=== PATIENT | male | born 1945 | race African-American/Black ===

== ENCOUNTER 2018-11-27 09:47 | Emergency (ER) | payer MEDICARE, MEDICAID ==
[~2018-11-27] VITALS: Ht 162.6 cm; Wt 72.6 kg
[~2018-11-27 09:47] MED LIST: KEFLEX500 MG ORAL; NKM
[2018-11-27 10:05] VITALS: BP 167/92
--- NOTE | 2018-11-27 10:05 | NUR ---
ED Nurse Note: Patient walked in c/o right elbow swelling and pain x 2 days; denies injury. Pt rates pain at 6/10. Pt is A&O x4, V/S noted with no s/s of acute distress noted at this time. Will continue to monitor the pt.
[2018-11-27] MEDS ORDERED: IBUPROFEN600 MG ORAL (10:22)
--- NOTE | 2018-11-27 10:27 | Emergency Room Report ---
History of Present Illness General Chief Complaint: Pain Source: Patient Present Illness HPI Patient presents with complaints of swelling to his right elbow initially noted In triage regarding pain as well however reports minimal discomfort denies any trauma Patient reports the swelling happened overnight he had just recently seen his primary physician however did not have this problem at the time Denies any neuropathy denies any shoulder pain denies any fevers or chills Allergies: Coded Allergies: No Known Allergies (Unverified , 03/22/14) Patient History Past Medical History: see triage record Pertinent Family History: none Reviewed Nursing Documentation: PMH: Agreed; PSxH: Agreed Nursing Documentation-PMH Hx Hypertension: Yes Review of Systems All Other Systems: negative except mentioned in HPI Physical Exam Vital Signs Date Time Temp Pulse Resp B/P (MAP) Pulse Ox O2 Delivery O2 Flow Rate FiO2 11/27/18 10:00 98.2 70 18 167/92 95 11/27/18 10:05 Room Air Sp02 EP Interpretation: reviewed, normal General Appearance: well appearing, no apparent distress Head: normocephalic, atraumatic Eyes: bilateral eye PERRL, bilateral eye EOMI ENT: hearing grossly normal Neck: full range of motion, supple Respiratory: lungs clear Cardiovascular #1: regular rate, rhythm Gastrointestinal: non tender, soft Musculoskeletal: other - Palpable swelling to the right elbow otherwise range of motion intact equal culinary arts teacher bilaterally Neurologic: alert, oriented x3 Skin: other - As above Lymphatic: no adenopathy Medical Decision Making Diagnostic Impression: Primary Impression: bursitis, elbow ER Course Patient's exam is consistent with bursitis patient is afebrile area does not appear warm or erythematous there was no reports of any trauma other differential such as gout, septic joint are considered Patient has free range and mobility of the elbow my suspicion for infection is low And patient will have close outpatient follow-up Last Vital Signs Date Time Temp Pulse Resp B/P (MAP) Pulse Ox O2 Delivery O2 Flow Rate FiO2 11/27/18 10:05 98.2 80 18 167/92 95 Room Air Status: unchanged Disposition: HOME, SELF-CARE Condition: Stable Scripts Ibuprofen* (MOTRIN*) 600 Mg Tablet 600 MG ORAL Q8H PRN for For Pain, #20 TAB 0 Refills Prov: Charbel Chahal DO 11/27/18 Referrals: Saman Pace MD Patient Instructions: Elbow Bursitis, [id number] Additional Instructions: Patient is provided with the discharge instructions notified to follow up with primary doctor in the next 2-3 days in order to obtain specialty referral otherwise return to the er with any worsening symptoms. Please note that this report is being documented using DRAGON technology. This can lead to erroneous entry secondary to incorrect interpretation by the dictating instrument. Charbel Chahal DO Nov 27, 2018 10:27
--- NOTE | 2018-11-27 10:29 | NUR ---
ED Nurse Note: pt was cleared for discharge by catina. prescription and discharge instruction explained. pt is aox 4, pt able to verbalize understanding. id band removed. pt able to walk with steady gait. pt left with all belongings.
[2018-11-27 10:30] VITALS: BP 167/92
== END 2018-11-27 10:35 | disposition home or self-care (01) ==
LOC: EMR 10:35
DX: M70.31 Other bursitis of elbow, right elbow (principal); I10 Essential (primary) hypertension
CPT/HCPCS: 99282

== ENCOUNTER 2019-05-19 18:47 | Inpatient (IN) | payer OTHER, MEDICAID ==
[~2019-05-19] VITALS: Ht 162.6 cm; Wt 72.6 kg
[~2019-05-19 18:47] MED LIST changes: +IBUPROFEN600 MG ORAL
--- NOTE | 2019-05-19 19:15 | NUR ---
ED Nurse Note: Patient walked in to ER c/o left leg pain 5/10. Deny any injury, fall. Stated that did not take BP medications during 4 days, BP upon arrival 204/105. AAO x4, skin is dry warm to touch. Patient connected to the monitor, will continue to monitor.
[2019-05-19 19:28] VITALS: BP 210/106
--- NOTE | 2019-05-19 20:04 | Emergency Room Report ---
History of Present Illness General Chief Complaint: Pain Source: Patient Present Illness HPI This patient complains of pain in his left hip. He states the pain is worse with movement. He states it radiates to his left thigh. He denies trauma or injury. He denies fever or chills. Denies tingling or numbness. He denies loss of bowel or bladder control. He has no other complaints. Allergies: Coded Allergies: No Known Allergies (Unverified , 03/22/14) Patient History Past Medical History: see triage record, HTN Social History: Denies: smoking, alcohol use, drug use Reviewed Nursing Documentation: PMH: Agreed; PSxH: Agreed Nursing Documentation-PMH Past Medical History: No History, Except For Hx Hypertension: Yes Review of Systems All Other Systems: negative except mentioned in HPI Physical Exam Vital Signs Date Time Temp Pulse Resp B/P (MAP) Pulse Ox O2 Delivery O2 Flow Rate FiO2 05/19/19 18:54 98.2 76 16 210/106 (140) 99 Room Air Sp02 EP Interpretation: reviewed, normal General Appearance: no apparent distress, alert, GCS 15, non-toxic Head: normocephalic, atraumatic Eyes: bilateral eye normal inspection, bilateral eye PERRL ENT: hearing grossly normal, normal pharynx, no angioedema, normal voice Neck: full range of motion, supple/symm/no masses Respiratory: chest non-tender, lungs clear, normal breath sounds, no respiratory distress, no retraction, no accessory muscle use, speaking full sentences Cardiovascular #1: regular rate, rhythm, no edema Gastrointestinal: normal bowel sounds, non tender, soft, non-distended, no guarding, no rebound Rectal: deferred Musculoskeletal: back normal, normal range of motion, other - Antalgic gait, + Pain with ROM of L. hip. Neurologic: alert, oriented x3, responsive, motor strength/tone normal, sensory intact, speech normal Psychiatric: judgement/insight normal, memory normal, mood/affect normal, no suicidal/homicidal ideation Medical Decision Making Diagnostic Impression: Primary Impression: Hip pain, left Additional Impressions: NSTEMI (non-ST elevated myocardial infarction) Malignant hypertension Noncompliance with medications ER Course This patient is found to have an elevated troponin consistent with non-STEMI. He also had malignant hypertension. He was given 2 doses of IV hydralazine, Lovenox, Plavix and aspirin here in the emergency department. The patient's left hip pain is likely musculoskeletal in etiology. Left hip x-ray and left femur x-ray were negative. This patient is admitted for further evaluation by cardiology and for his malignant hypertension This patient is critically ill. This patient required complex medical decision- making, aggressive intervention, extensive laboratory workup and monitoring. Critical care time: 40 minutes. Laboratory Tests Test 05/19/19 20:05 White Blood Count 7.0 K/UL (4.8-10.8) Red Blood Count 4.97 M/UL (4.70-6.10) Hemoglobin 14.8 G/DL (14.2-18.0) Hematocrit 44.4 % (42.0-52.0) Mean Corpuscular Volume 89 FL (80-99) Mean Corpuscular Hemoglobin 29.8 PG (27.0-31.0) Mean Corpuscular Hemoglobin Concent 33.3 G/DL (32.0-36.0) Red Cell Distribution Width 12.3 % (11.6-14.8) Platelet Count 271 K/UL (150-450) Mean Platelet Volume 6.4 FL (6.5-10.1) L Neutrophils (%) (Auto) 64.2 % (45.0-75.0) Lymphocytes (%) (Auto) 20.8 % (20.0-45.0) Monocytes (%) (Auto) 8.5 % (1.0-10.0) Eosinophils (%) (Auto) 4.4 % (0.0-3.0) H Basophils (%) (Auto) 2.1 % (0.0-2.0) H Sodium Level 139 MMOL/L (136-145) Potassium Level 4.1 MMOL/L (3.5-5.1) Chloride Level 105 MMOL/L (98-107) Carbon Dioxide Level 30 MMOL/L (21-32) Anion Gap 4 mmol/L (5-15) L Blood Urea Nitrogen 20 mg/dL (7-18) H Creatinine 1.5 MG/DL (0.55-1.30) H Estimate Glomerular Filtration Rate mL/min (>60) Glucose Level 118 MG/DL (74-106) H Calcium Level 8.8 MG/DL (8.5-10.1) Total Bilirubin 0.5 MG/DL (0.2-1.0) Aspartate Amino Transferase (AST) 17 U/L (15-37) Alanine Aminotransferase (ALT) 14 U/L (12-78) Alkaline Phosphatase 58 U/L (46-116) Total Creatine Kinase 131 U/L (26-308) Creatine Kinase MB 1.5 NG/ML (0.0-3.6) Creatine Kinase MB Relative Index 1.1 Troponin I 0.060 ng/mL (0.000-0.056) Total Protein 6.3 G/DL (6.4-8.2) L Albumin 3.1 G/DL (3.4-5.0) L Globulin 3.2 g/dL Albumin/Globulin Ratio 1.0 (1.0-2.7) EKG Diagnostic Results Rate: normal - SR w/ 1st degree AV block Rhythm: other - SR w/ 1st degree AV block ST Segments: no acute changes Rhythm Strip Diag. Results EP Interpretation: yes Rate: 60's Rhythm: no PVC's, no ectopy, other - SR Other X-Ray Diagnostic Results Other X-Ray Diagnostic Results : X-Ray ordered: L. Hip, L. femur xrays # of Views/Limited Vs Complete: Complete Indication: Pain EP Interpretation: Yes Interpretation: no fractures Impression: No acute disease Electronically Signed by: Alyas Maria DO. Last Vital Signs Date Time Temp Pulse Resp B/P (MAP) Pulse Ox O2 Delivery O2 Flow Rate FiO2 05/19/19 19:28 98.2 16 210/106 99 Room Air 05/19/19 18:54 76 Status: improved Disposition: ADMITTED INPATIENT Condition: Critical Alysa Maria DO May 19, 2019 20:04
[2019-05-19] MEDS ORDERED: Tylenol #3 tab (300mg/30mg) ORAL ONE (20:15)
[2019-05-19 20:28] VITALS: BP 184/98
--- NOTE | 2019-05-19 20:28 | NUR ---
ED Nurse Note: After 0.5 mL of Apresoline pt's BP is 170/89.
[2019-05-19 20:33] LABS: BASOPHILS % (AUTO) 2.1 % (0.0-2.0); EOSINOPHILS % (AUTO) 4.4 % (0.0-3.0); HEMATOCRIT 44.4 % (42.0-52.0); HEMOGLOBIN 14.8 G/DL (14.2-18.0); LYMPHOCYTES % (AUTO) 20.8 % (20.0-45.0); MEAN CORPUSCULAR VOLUME 89 FL (80-99); MONOCYTES % (AUTO) 8.5 % (1.0-10.0); NEUTROPHILS % (AUTO) 64.2 % (45.0-75.0); PLATELET COUNT 271 K/UL (150-450); RED BLOOD COUNT 4.97 M/UL (4.70-6.10); RED CELL DISTRIBUTION WIDTH 12.3 % (11.6-14.8)
[2019-05-19] MEDS ORDERED: Enoxaparin 80mg Inj SUBQ ONE (21:00)
[2019-05-19 21:11] LABS: ANION GAP 4 mmol/L (5-15); BLOOD UREA NITROGEN 20 mg/dL (7-18); CALCIUM 8.8 MG/DL (8.5-10.1); CARBON DIOXIDE 30 MMOL/L (21-32); CHLORIDE 105 MMOL/L (98-107); CREATININE 1.5 MG/DL (0.55-1.30); POTASSIUM 4.1 MMOL/L (3.5-5.1); SODIUM 139 MMOL/L (136-145)
[2019-05-19 21:25] LABS: ALANINE AMINOTRANSFERASE 14 U/L (12-78); ALBUMIN 3.1 G/DL (3.4-5.0); ALKALINE PHOSPHATASE 58 U/L (46-116); ASPARTATE AMINO TRANSFERASE 17 U/L (15-37); BILIRUBIN,TOTAL 0.5 MG/DL (0.2-1.0); CKMB 1.5 NG/ML (0.0-3.6); CREATINE KINASE 131 U/L (26-308)
[2019-05-19 21:28] VITALS: BP 177/95
[2019-05-19 22:28] VITALS: BP 166/84
[2019-05-20] VITALS (8 sets, daily range): BP systolic 125–190; BP diastolic 0–96
--- NOTE | 2019-05-20 00:53 | NUR ---
ED Nurse Note: Patient is in the bed, AAO xr4, VSS at this time, sandwich and juice provided.
--- NOTE | 2019-05-20 01:22 | NUR ---
ED Nurse Note: Patient was admited to Tele due to NSTEMI. AAO x4, VSS at this time, pt's BP is 158/85, skin is dry warm to touch. Patient was transfered via gurney by ACLS protocol, with all belongings.
--- NOTE | 2019-05-20 01:38 | NUR ---
NURSE NOTES: Received pt from YUNIOR Dukes. Pt awake, alert, and c/o leg pain. Bed in lowest position. Call light within reach. Called and received the following orders from Dr. Nguyen: - SCD - tropX3 - cont home meds ( pt stated that he does not remember home meds and someone will bring it in the morning) - CBC, CMP @ 0400 VSS. Will continue to monitor.
[2019-05-20] MEDS: traMADol 50mg tab ORAL PRN ×3 (05:05→23:19)
[2019-05-20 06:46] LABS: BASOPHILS % (AUTO) 1.8 % (0.0-2.0); EOSINOPHILS % (AUTO) 4.8 % (0.0-3.0); HEMATOCRIT 46.2 % (42.0-52.0); HEMOGLOBIN 15.2 G/DL (14.2-18.0); LYMPHOCYTES % (AUTO) 23.9 % (20.0-45.0); MEAN CORPUSCULAR VOLUME 90 FL (80-99); MONOCYTES % (AUTO) 11.1 % (1.0-10.0); NEUTROPHILS % (AUTO) 58.4 % (45.0-75.0); PLATELET COUNT 265 K/UL (150-450); RED BLOOD COUNT 5.11 M/UL (4.70-6.10); WHITE BLOOD COUNT 7.6 K/UL (4.8-10.8)
--- NOTE | 2019-05-20 07:15 | NUR ---
NURSE NOTES: I received the patient awake and eating breakfast in bed. Patient alert and oriented x4. Patient denies pain at this time. Bed in the lowest position and call light within reach. Patient does not display any signs of distress or SOB. I will continue to monitor the patient and implement care.
[2019-05-20 07:34] LABS: ALANINE AMINOTRANSFERASE 12 U/L (12-78); ALBUMIN 2.8 G/DL (3.4-5.0); ALBUMIN/GLOBULIN RATIO 0.9 (1.0-2.7); ALKALINE PHOSPHATASE 57 U/L (46-116); ANION GAP 6 mmol/L (5-15); ASPARTATE AMINO TRANSFERASE 20 U/L (15-37); BILIRUBIN,TOTAL 0.5 MG/DL (0.2-1.0); BLOOD UREA NITROGEN 21 mg/dL (7-18); CALCIUM 8.8 MG/DL (8.5-10.1); CARBON DIOXIDE 29 MMOL/L (21-32); CHLORIDE 107 MMOL/L (98-107); CREATININE 1.3 MG/DL (0.55-1.30); POTASSIUM 3.9 MMOL/L (3.5-5.1); SODIUM 141 MMOL/L (136-145)
--- NOTE | 2019-05-20 08:02 | NUR ---
HAND-OFF: Report given to boaz Reese. pT STABLE
[2019-05-20] MEDS: HydrALAZINE 50mg tab ORAL SCH ×3 (08:32→17:15)
[2019-05-20 10:36] LABS: CHOLESTEROL 201 MG/DL (< 200); HDL CHOLESTEROL 41 MG/DL (40-60); TRIGLYCERIDES 112 MG/DL (30-150)
--- NOTE | 2019-05-20 12:14 | Diagnostic Imaging Report ---
Indication: Left thigh pain Comparison: None Findings: 2 views of the left femur were obtained. No acute fractures, malalignment, erosions or periostitis are identified. Soft tissues are unremarkable. Impression: Negative examination of the femur
--- NOTE | 2019-05-20 12:15 | Diagnostic Imaging Report ---
Indications: Left hip pain Findings: Two views of the left hip were obtained. No acute fracture is demonstrated. Alignment of the hip is within normal limits. There is narrowing of both hip joints. Degenerative changes of the lower lumbar spine noted. Arterial calcifications are present. Soft tissues are unremarkable. Impression: Negative for acute injury.
--- NOTE | 2019-05-20 13:40 | NUR ---
CASE MANAGEMENT:REVIEW 73 YR OLD MALE FROM HOME TO ER CC: LT LEG PAIN SI: NSTEMI. MALIGNANT HTN. LT HIP PAIN 98.2 76 16 210/106 99% ON RA BUN+20 CR+1.5 TROPONIN(+) 0.060 IS: IV HYDRALAZINE X2 TYLENOL #3 PO ASA PO LOVENOX SQ FEMUR XRAY HIP XRAY : TO TELEMETRY *INTERQUAL CRITERIA MET
--- NOTE | 2019-05-20 15:52 | Cardiology Report ---
APPROVED REPORT EKG Measurement Heart [id number] Sinus tachycardia Possible Left atrial enlargement Left posterior fascicular block Inferior infarct, age undetermined Possible Anterior infarct, age undetermined Abnormal ECG
--- NOTE | 2019-05-20 16:29 | NUR ---
INSURANCE UPDATED CLINICALS and REVIEW HAVE BEEN FAXED TO: [facility] PLEASE FAX THE REVIEW AND CLINICAL TO IPA: KAYLI MCGRAW P: [phone] F: [phone] (FAX CLINICALS)
--- NOTE | 2019-05-20 18:11 | NUR ---
NURSE NOTES: Patient's BP is elevated. Hydralazine was administered, but BP continues to be elevated. Dr. Cronin was notified about patient's elevated BP. Patient resting in bed and does not display any signs of distress.
--- NOTE | 2019-05-20 19:20 | NUR ---
HAND-OFF: Report given to Gail Phoenix RN.
--- NOTE | 2019-05-20 19:21 | NUR ---
NURSE NOTES: Got report from Taryn MOJICA. Pt in stable condition. Denies any pain. No s/s of distress or discomfort noted. Pt resting in bed comfortably. Bed in low and locked position, call light within reach, bedside table within reach. Continue to monitor.
--- NOTE | 2019-05-20 19:59 | Cardiology Progress Note ---
Assessment/Plan Assessment/Plan hip pain no trauma and neg xray nstemi? htn hyperlipidemia start ecotrin sereil ezyme and ekg bb statin acei echo [id number] Objective Last 24 Hour Vital Signs Date Time Temp Pulse Resp B/P (MAP) Pulse Ox O2 Delivery O2 Flow Rate FiO2 05/20/19 17:15 169/96 05/20/19 16:00 97.8 94 20 169/96 (120) 98 05/20/19 16:00 104 05/20/19 15:23 97.8 05/20/19 13:15 138/80 05/20/19 12:00 79 05/20/19 12:00 98.1 91 20 138/80 (99) 97 05/20/19 09:00 Room Air 05/20/19 08:32 171/95 05/20/19 08:32 171/95 05/20/19 08:00 77 05/20/19 08:00 97.8 77 171/95 (120) 98 05/20/19 04:00 83 05/20/19 04:00 98.2 84 134/78 (96) 96 05/20/19 01:59 Room Air 05/20/19 01:43 76 125/83 (97) 97 05/20/19 01:32 93 05/20/19 01:22 98.2 87 16 158/85 99 Room Air 05/20/19 00:28 98.2 87 16 158/85 99 Room Air 05/19/19 22:28 98.2 100 16 166/84 99 Room Air 05/19/19 21:28 98.2 103 16 177/95 98 Room Air 05/19/19 21:14 191/98 05/19/19 20:50 98.2 05/19/19 20:28 98.2 110 16 184/98 99 Room Air 05/19/19 20:20 189/105 Intake and Output 05/19/19 05/20/19 19:00 07:00 # Voids 2 Laboratory Tests Test 05/19/19 20:05 05/20/19 05:17 White Blood Count 7.0 K/UL (4.8-10.8) 7.6 K/UL (4.8-10.8) Red Blood Count 4.97 M/UL (4.70-6.10) 5.11 M/UL (4.70-6.10) Hemoglobin 14.8 G/DL (14.2-18.0) 15.2 G/DL (14.2-18.0) Hematocrit 44.4 % (42.0-52.0) 46.2 % (42.0-52.0) Mean Corpuscular Volume 89 FL (80-99) 90 FL (80-99) Mean Corpuscular Hemoglobin 29.8 PG (27.0-31.0) 29.8 PG (27.0-31.0) Mean Corpuscular Hemoglobin Concent 33.3 G/DL (32.0-36.0) 33.0 G/DL (32.0-36.0) Red Cell Distribution Width 12.3 % (11.6-14.8) 13.0 % (11.6-14.8) Platelet Count 271 K/UL (150-450) 265 K/UL (150-450) Mean Platelet Volume 6.4 FL (6.5-10.1) L 6.2 FL (6.5-10.1) L Neutrophils (%) (Auto) 64.2 % (45.0-75.0) 58.4 % (45.0-75.0) Lymphocytes (%) (Auto) 20.8 % (20.0-45.0) 23.9 % (20.0-45.0) Monocytes (%) (Auto) 8.5 % (1.0-10.0) 11.1 % (1.0-10.0) H Eosinophils (%) (Auto) 4.4 % (0.0-3.0) H 4.8 % (0.0-3.0) H Basophils (%) (Auto) 2.1 % (0.0-2.0) H 1.8 % (0.0-2.0) Sodium Level 139 MMOL/L (136-145) 141 MMOL/L (136-145) Potassium Level 4.1 MMOL/L (3.5-5.1) 3.9 MMOL/L (3.5-5.1) Chloride Level 105 MMOL/L (98-107) 107 MMOL/L (98-107) Carbon Dioxide Level 30 MMOL/L (21-32) 29 MMOL/L (21-32) Anion Gap 4 mmol/L (5-15) L 6 mmol/L (5-15) Blood Urea Nitrogen 20 mg/dL (7-18) H 21 mg/dL (7-18) H Creatinine 1.5 MG/DL (0.55-1.30) H 1.3 MG/DL (0.55-1.30) Estimat Glomerular Filtration Rate mL/min (>60) mL/min (>60) Glucose Level 118 MG/DL (74-106) H 115 MG/DL (74-106) H Calcium Level 8.8 MG/DL (8.5-10.1) 8.8 MG/DL (8.5-10.1) Total Bilirubin 0.5 MG/DL (0.2-1.0) 0.5 MG/DL (0.2-1.0) Aspartate Amino Transf (AST/SGOT) 17 U/L (15-37) 20 U/L (15-37) Alanine Aminotransferase (ALT/SGPT) 14 U/L (12-78) 12 U/L (12-78) Alkaline Phosphatase 58 U/L (46-116) 57 U/L (46-116) Total Creatine Kinase 131 U/L (26-308) Creatine Kinase MB 1.5 NG/ML (0.0-3.6) Creatine Kinase MB Relative Index 1.1 Troponin I 0.060 ng/mL (0.000-0.056) 1.096 ng/mL (0.000-0.056) Total Protein 6.3 G/DL (6.4-8.2) L 6.0 G/DL (6.4-8.2) L Albumin 3.1 G/DL (3.4-5.0) L 2.8 G/DL (3.4-5.0) L Globulin 3.2 g/dL 3.2 g/dL Albumin/Globulin Ratio 1.0 (1.0-2.7) 0.9 (1.0-2.7) L Triglycerides Level 112 MG/DL (30-150) Cholesterol Level 201 MG/DL (< 200) H LDL Cholesterol 136 mg/dL (<100) H HDL Cholesterol 41 MG/DL (40-60) Cholesterol/HDL Ratio 4.9 (3.3-4.4) H Prostate Specific Antigen 1.57 ng/mL (0.13-4.0) Thyroid Stimulating Hormone (TSH) 3.226 uiU/mL (0.358-3.740) Les Cronin MD May 20, 2019 19:59
[2019-05-20] MEDS: Atorvastatin 80mg tab ORAL SCH ×2 (20:41→23:29)
[2019-05-20] MEDS: Metoprolol 25mg tab ORAL SCH ×2 (20:42→23:29)
--- NOTE | 2019-05-20 22:00 | Consultation ---
DATE OF CONSULTATION: 05/20/2019 CARDIOLOGY CONSULTATION CONSULTING PHYSICIAN: Les Cronin M.D. REFERRING PHYSICIAN: Bipin Nguyen M.D. REASON FOR REFERRAL: Hypertension. HISTORY OF PRESENT ILLNESS: This is an elderly gentleman, who has presented to the hospital here in emergency room at [facility]. He tells me he came in because of the pain in the left hip and was admitted to the hospital with significantly elevated blood pressure and this consultation subsequently requested by Dr. Nguyen for help in management of his blood pressure. He came to the emergency room because of his hip pain with movement. He states that his left leg has been the one that has been hurting. He denies any falls or injuries. Denies any chest pain or shortness of breath. No PND. No orthopnea. No palpitation. No dizziness or lightheadedness on standing. No heart pounding or palpitations. PAST MEDICAL HISTORY: Positive for history of high blood pressure. He denies any diabetes or high cholesterol. No heart attack, cancer, stroke, hepatitis, tuberculosis, asthma, or emphysema. No ulcers. No kidney problems, liver problems, thyroid problems, or anemia. He does have a history of arthritis. No HIV/AIDS, blood clots, prostatic enlargement. ALLERGIES: He is not allergic to any medications. SOCIAL HISTORY: He does not smoke or drink or use drugs. REVIEW OF SYSTEMS: GASTROINTESTINAL: He denies. : He does have discomfort on urination. PULMONARY: He denies. CONSTITUTIONAL: He denies. NEUROLOGICAL: He denies. PHYSICAL EXAMINATION: GENERAL: Shows to be elderly gentleman, in no respiratory distress. HEENT: Unremarkable. NECK: Supple. No jugular venous distention. LUNGS: Clear to auscultation and percussion. CARDIAC: Regular rhythm. Borderline tachycardic. No heaves, thrills, or gallops noted. ABDOMEN: Soft, nontender. Positive bowel sounds. EXTREMITIES: There is no clubbing, cyanosis, or edema. NEUROLOGICAL: He is awake, alert, responsive, and in no apparent distress. LABORATORY AND DIAGNOSTIC DATA: Laboratory values, his sodium 141, potassium 3.9, chloride 107, bicarb 29, BUN of 21, creatinine 1.3, and glucose of 115. His calcium is 8.8. Troponin was 0.060, subsequently is 1.096. Total protein is 6 and albumin of 2.9. Total cholesterol 201, LDL of 136, and HDL of 41. TSH of 3.26 and PSA of 1.57. He had x-rays of his hip that shows negative for injury. He also had x-rays of his femur that was negative for examination. His electrocardiogram shows normal sinus rhythm. There are Q-waves in the inferior leads. There is some biphasic T-waves in I and aVL, otherwise sinus rhythm, no ST or T-wave abnormalities. ASSESSMENT AND PLAN: 1. Abnormal cardiac enzymes. 2. Left hip pain. 3. Hypertension. 4. Hyperlipidemia. Dr. Nguyen, this patient was seen in cardiac consultation. The patient has significantly elevated blood pressure at times and therefore to be treated. His medication was not available aspirin for his possible myocardial injury. An echocardiogram should be ordered for evaluation of left ventricular systolic function. Repeat EKG and repeat cardiac enzymes will be done. Troponin will be ordered. Beta-blockers will be administered in addition to DEAN inhibitors for the time being. Of note, the patient absolutely denies any pain, pressure, tightness or heaviness, and discomfort in his chest. Les Cronin M.D. DR: KERVIN JOB#: [id number] CC:
[2019-05-21] VITALS (7 sets, daily range): BP systolic 139–175; BP diastolic 68–95
[2019-05-21 07:14] LABS: EOSINOPHILS % (AUTO) 1.9 % (0.0-3.0); HEMATOCRIT 49.2 % (42.0-52.0); HEMOGLOBIN 16.1 G/DL (14.2-18.0); LYMPHOCYTES % (AUTO) 15.9 % (20.0-45.0); MEAN CORPUSCULAR VOLUME 90 FL (80-99); MONOCYTES % (AUTO) 10.8 % (1.0-10.0); NEUTROPHILS % (AUTO) 70.4 % (45.0-75.0); PLATELET COUNT 291 K/UL (150-450); RED BLOOD COUNT 5.46 M/UL (4.70-6.10); RED CELL DISTRIBUTION WIDTH 13.3 % (11.6-14.8); WHITE BLOOD COUNT 10.1 K/UL (4.8-10.8)
--- NOTE | 2019-05-21 07:15 | NUR ---
NURSE NOTES: I received the patient awake and resting in bed. Patient alert and oriented x4. Bed in the lowest position and call light within reach. Patient does not display any signs of distress or SOB. I will continue to monitor the patient and implement care.
--- NOTE | 2019-05-21 07:15 | NUR ---
HAND-OFF: Report given to Taryn MOJICA. Endorsed plan of care.
[2019-05-21 07:57] LABS: ANION GAP 6 mmol/L (5-15); BLOOD UREA NITROGEN 18 mg/dL (7-18); CARBON DIOXIDE 30 MMOL/L (21-32); CHLORIDE 99 MMOL/L (98-107); CREATININE 1.2 MG/DL (0.55-1.30); POTASSIUM 4.4 MMOL/L (3.5-5.1); SODIUM 135 MMOL/L (136-145)
--- NOTE | 2019-05-21 08:15 | NUR ---
NURSE NOTES: Dr. Cronin notified about the patient's troponin level of 1.375. Patient resting in bed and does not display any signs of distress. I will continue to monitor the patient and implement care.
[2019-05-21] MEDS: Metoprolol 25mg tab ORAL SCH ×2 (08:27→20:59)
[2019-05-21] MEDS: Aspirin EC 81mg tab ORAL SCH (08:28)
--- NOTE | 2019-05-21 12:21 | NUR ---
CASE MANAGEMENT: REVIEW 05/21/2019 SI: NSTEMI. MALIGNANT HTN. LT HIP PAIN T 97.1 HR 57 RR 20 B/P 141/77 SATS 95% ON RA NA 135 TROPONIN 1.375 IS: LIPITOR PO QHS VASOTEC PO QD ASA PO QD NORVASC PO Q12H LOPRESSOR PO Q12H : TO TELEMETRY
--- NOTE | 2019-05-21 13:05 | NUR ---
HAND-OFF: Report given to YUNIOR Roy.
--- NOTE | 2019-05-21 13:10 | NUR ---
NURSE NOTES: Report received from YUNIOR Centeno. Patient AOx4. In RA. L AC 20g IV patent, SL. Bed on lowest position, side rails upx2, brakes engaged. Call light within easy reach.
[2019-05-21] MEDS: traMADol 50mg tab ORAL PRN ×2 (13:32→20:58)
--- NOTE | 2019-05-21 14:07 | Cardiology Progress Note ---
Assessment/Plan Assessment/Plan elevated troponin, but clinically stable, no symptoms, Echo pending Subjective Subjective the patient is sleeping in his bed. arousable, denies chest pain, denies dyspnea , denies any other chest discomfort Objective Last 24 Hour Vital Signs Date Time Temp Pulse Resp B/P (MAP) Pulse Ox O2 Delivery O2 Flow Rate FiO2 05/21/19 12:00 58 05/21/19 12:00 97.1 57 20 141/77 (98) 95 05/21/19 09:51 61 139/68 (91) 05/21/19 09:00 Room Air 05/21/19 08:28 175/85 05/21/19 08:27 63 175/85 05/21/19 08:27 63 175/85 05/21/19 08:00 59 05/21/19 07:57 97.4 63 18 175/85 (115) 95 05/21/19 04:20 59 05/21/19 04:20 98.0 66 20 150/88 (108) 95 05/21/19 00:07 96 05/21/19 00:01 98.4 98 19 160/95 (116) 95 05/21/19 00:00 98.6 05/20/19 23:29 100 190/95 05/20/19 23:29 100 190/95 05/20/19 22:53 Room Air 05/20/19 21:00 155/90 (111) 05/20/19 20:00 124 05/20/19 20:00 98.6 100 19 190/95 (126) 98 05/20/19 17:15 169/96 05/20/19 16:00 97.8 94 20 169/96 (120) 98 05/20/19 16:00 104 General Appearance: no apparent distress EENT: PERRL/EOMI Neck: no JVD Rhythm: NSR Cardiovascular: regular rhythm - distant Respiratory/Chest: rhonchi - bilaterally Abdomen: soft Extremities: other Neurologic: fish straightener II-XII grossly normal Intake and Output 05/20/19 05/21/19 19:00 07:00 Intake Total 840 ml Output Total 500 ml 500 ml Balance 340 ml -500 ml Intake Oral 840 ml Output Urine Total 500 ml 500 ml Laboratory Tests Test 05/21/19 06:31 White Blood Count 10.1 K/UL (4.8-10.8) Red Blood Count 5.46 M/UL (4.70-6.10) Hemoglobin 16.1 G/DL (14.2-18.0) Hematocrit 49.2 % (42.0-52.0) Mean Corpuscular Volume 90 FL (80-99) Mean Corpuscular Hemoglobin 29.5 PG (27.0-31.0) Mean Corpuscular Hemoglobin Concent 32.8 G/DL (32.0-36.0) Red Cell Distribution Width 13.3 % (11.6-14.8) Platelet Count 291 K/UL (150-450) Mean Platelet Volume 6.2 FL (6.5-10.1) L Neutrophils (%) (Auto) 70.4 % (45.0-75.0) Lymphocytes (%) (Auto) 15.9 % (20.0-45.0) L Monocytes (%) (Auto) 10.8 % (1.0-10.0) H Eosinophils (%) (Auto) 1.9 % (0.0-3.0) Basophils (%) (Auto) 1.0 % (0.0-2.0) Sodium Level 135 MMOL/L (136-145) L Potassium Level 4.4 MMOL/L (3.5-5.1) Chloride Level 99 MMOL/L (98-107) Carbon Dioxide Level 30 MMOL/L (21-32) Anion Gap 6 mmol/L (5-15) Blood Urea Nitrogen 18 mg/dL (7-18) Creatinine 1.2 MG/DL (0.55-1.30) Estimat Glomerular Filtration Rate mL/min (>60) Glucose Level 104 MG/DL (74-106) Calcium Level 9.0 MG/DL (8.5-10.1) Troponin I 1.375 ng/mL (0.000-0.056) Yana Patel MD May 21, 2019 14:07
--- NOTE | 2019-05-21 18:59 | Pulmonology Progress Note ---
Assessment/Plan Assessment/Plan left hip pain malignant hypertension NSTEMI will order CT of left hip and L spine will need PT fu with cards recommendations check labs fall precauations bp control Subjective Constitutional: Reports: no symptoms HEENT: Repors: no symptoms Respiratory: Reports: no symptoms Cardiovascular: Reports: no symptoms Gastrointestinal/Abdominal: Reports: no symptoms Musculoskeletal: Reports: pain, other Allergies: Coded Allergies: No Known Allergies (Unverified , 03/22/14) Subjective no cp complains of weak L leg unable to ambualte to the BR no fever or chills no nv tolearint po Objective Last 24 Hour Vital Signs Date Time Temp Pulse Resp B/P (MAP) Pulse Ox O2 Delivery O2 Flow Rate FiO2 05/21/19 16:00 57 05/21/19 16:00 98.0 61 18 143/87 (105) 97 05/21/19 12:00 58 05/21/19 12:00 97.1 57 20 141/77 (98) 95 05/21/19 09:51 61 139/68 (91) 05/21/19 09:00 Room Air 05/21/19 08:28 175/85 05/21/19 08:27 63 175/85 05/21/19 08:27 63 175/85 05/21/19 08:00 59 05/21/19 07:57 97.4 63 18 175/85 (115) 95 05/21/19 04:20 59 05/21/19 04:20 98.0 66 20 150/88 (108) 95 05/21/19 00:07 96 05/21/19 00:01 98.4 98 19 160/95 (116) 95 05/21/19 00:00 98.6 05/20/19 23:29 100 190/95 05/20/19 23:29 100 190/95 05/20/19 22:53 Room Air 05/20/19 21:00 155/90 (111) 05/20/19 20:00 124 05/20/19 20:00 98.6 100 19 190/95 (126) 98 Intake and Output 05/20/19 05/21/19 19:00 07:00 Intake Total 840 ml Output Total 500 ml 500 ml Balance 340 ml -500 ml Intake Oral 840 ml Output Urine Total 500 ml 500 ml General Appearance: WD/WN Respiratory/Chest: lungs clear, normal breath sounds Cardiovascular: normal rate, regular rhythm Abdomen: soft, non tender, no organomegaly Neurologic/Psychiatric: abnormal gait, alert, oriented x 3, responsive Laboratory Tests 05/21/19 06:31: White Blood Count 10.1, Red Blood Count 5.46, Hemoglobin 16.1, Hematocrit 49.2, Mean Corpuscular Volume 90, Mean Corpuscular Hemoglobin 29.5, Mean Corpuscular Hemoglobin Concent 32.8, Red Cell Distribution Width 13.3, Platelet Count 291, Mean Platelet Volume 6.2L, Neutrophils (%) (Auto) 70.4, Lymphocytes (%) (Auto) 15.9L, Monocytes (%) (Auto) 10.8H, Eosinophils (%) (Auto) 1.9, Basophils (%) ( Auto) 1.0, Sodium Level 135L, Potassium Level 4.4, Chloride Level 99, Carbon Dioxide Level 30, Anion Gap 6, Blood Urea Nitrogen 18, Creatinine 1.2, Estimat Glomerular Filtration Rate , Glucose Level 104, Calcium Level 9.0, Troponin I 1.375H Current Medications Medications (Trade) Dose Ordered Sig/Izabel Route PRN Reason Start Time Stop Time Status Last Admin Dose Admin Amlodipine Besylate (Norvasc) 2.5 mg Q12HR ORAL 05/20/19 20:00 06/19/19 19:59 05/21/19 08:27 Aspirin (Ecotrin) 81 mg DAILY ORAL 05/21/19 09:00 06/20/19 08:59 05/21/19 08:28 Atorvastatin Calcium (Lipitor) 80 mg BEDTIME ORAL 05/20/19 21:00 06/19/19 20:59 05/20/19 23:29 Enalapril Maleate (Vasotec) 40 mg DAILY ORAL 05/20/19 09:00 06/19/19 08:59 05/21/19 08:28 Metoprolol Tartrate (Lopressor) 25 mg Q12HR ORAL 05/20/19 21:00 06/19/19 20:59 05/21/19 08:27 Tramadol HCl (Ultram) 50 mg Q4H PRN ORAL for mod-severe pain 05/20/19 02:15 05/27/19 02:14 05/21/19 13:32 Gely Chanel DO May 21, 2019 18:59
--- NOTE | 2019-05-21 19:25 | NUR ---
HAND-OFF: Report given to YUNIOR Davison. Patient in stable condition.
--- NOTE | 2019-05-21 19:27 | NUR ---
NURSE NOTES: Received report from Sabino Zuniga RN. Patient in bed AAO X4 with no complaints of acute pain or distress at this time. Kept clean, dry, and comfortable in bed. IV line intact and patent SL and placed on continuous cardiac monitoring per protocol. Patient on bedrest and offered urinal PRN. Safety precaution in place; siderails X2 up, call light within reach, be din lowest position, brakes and alarm on at all times. Needs and wants anticipated and attended, will continue plan of care and monitor for any changes noted. Trop lvl 1.375. aware. Trop lvl order scheduled for 05/22 and 05/23
[2019-05-21] MEDS: Atorvastatin 80mg tab ORAL SCH (20:59)
[2019-05-22] VITALS (7 sets, daily range): BP systolic 149–206; BP diastolic 82–112
--- NOTE | 2019-05-22 01:00 | NUR ---
NURSE NOTES: Called and left message for Sabino Chanel MD. regarding patient's elevated BP. No PRN medication noted. awaiting call-back. Patient in bed with no S/S of distress. Will continue to monitor
[2019-05-22] MEDS: traMADol 50mg tab ORAL PRN ×2 (01:03→05:35)
--- NOTE | 2019-05-22 04:00 | NUR ---
NURSE NOTES: Patient in bed asleep with no S/S of distress. Will continue to monitor.
--- NOTE | 2019-05-22 07:20 | NUR ---
HAND-OFF: Report given to Nieves Kingsley RN. Patient in bed in stable condition with no S/S of distress. Endorsed plan of care.
[2019-05-22] MEDS: Metoprolol 25mg tab ORAL SCH ×2 (08:19→20:53)
[2019-05-22] MEDS: Aspirin EC 81mg tab ORAL SCH (08:20)
--- NOTE | 2019-05-22 10:28 | Pulmonology Progress Note ---
Assessment/Plan Assessment/Plan left hip pain malignant hypertension NSTEMI will order CT of left hip and L spine still pending. if negative will plan for dc will need PT fu with cards recommendations check labs fall precauations bp control Subjective Constitutional: Reports: no symptoms HEENT: Repors: no symptoms Respiratory: Reports: no symptoms Cardiovascular: Reports: no symptoms Allergies: Coded Allergies: No Known Allergies (Unverified , 03/22/14) Subjective no cp pain improved walked to bathroom without assistance or complaints no fever or chills no nv tolerating po CT still pending Objective Last 24 Hour Vital Signs Date Time Temp Pulse Resp B/P (MAP) Pulse Ox O2 Delivery O2 Flow Rate FiO2 05/22/19 09:00 Room Air 05/22/19 08:20 64 176/103 05/22/19 08:19 64 176/103 05/22/19 08:19 176/103 05/22/19 08:00 68 05/22/19 08:00 97.4 64 18 176/103 (127) 95 05/22/19 04:00 98.5 66 20 156/89 (111) 95 05/22/19 04:00 56 05/22/19 00:00 56 05/22/19 00:00 98.1 65 20 175/95 (121) 94 05/21/19 21:00 Room Air 05/21/19 20:59 65 165/92 05/21/19 20:59 65 165/92 05/21/19 20:00 98.1 65 18 165/92 (116) 98 05/21/19 20:00 73 05/21/19 16:00 57 05/21/19 16:00 98.0 61 18 143/87 (105) 97 05/21/19 12:00 58 05/21/19 12:00 97.1 57 20 141/77 (98) 95 Intake and Output 05/21/19 05/22/19 19:00 07:00 Intake Total 360 ml Output Total 650 ml 500 ml Balance -290 ml -500 ml Intake Oral 360 ml Output Urine Total 650 ml 500 ml General Appearance: WD/WN Respiratory/Chest: lungs clear, normal breath sounds Cardiovascular: normal rate, regular rhythm Abdomen: soft, non tender, non distended Skin: no rash, no lesions Neurologic/Psychiatric: abnormal gait, responsive Laboratory Tests 05/22/19 08:46: Troponin I [Pending] Current Medications Medications (Trade) Dose Ordered Sig/Izabel Route PRN Reason Start Time Stop Time Status Last Admin Dose Admin Amlodipine Besylate (Norvasc) 2.5 mg Q12HR ORAL 05/20/19 20:00 06/19/19 19:59 05/22/19 08:20 Aspirin (Ecotrin) 81 mg DAILY ORAL 05/21/19 09:00 06/20/19 08:59 05/22/19 08:20 Atorvastatin Calcium (Lipitor) 80 mg BEDTIME ORAL 05/20/19 21:00 06/19/19 20:59 05/21/19 20:59 Enalapril Maleate (Vasotec) 40 mg DAILY ORAL 05/20/19 09:00 06/19/19 08:59 05/22/19 08:19 Metoprolol Tartrate (Lopressor) 25 mg Q12HR ORAL 05/20/19 21:00 06/19/19 20:59 05/22/19 08:19 Tramadol HCl (Ultram) 50 mg Q4H PRN ORAL for mod-severe pain 05/20/19 02:15 05/27/19 02:14 05/22/19 05:35 Gely Chanel DO May 22, 2019 10:28
--- NOTE | 2019-05-22 13:52 | Cardiology Progress Note ---
Assessment/Plan Assessment/Plan elevated troponin, but clinically stable, no symptoms, Echo pending check Le arterial dpulex Subjective Subjective resting comfortably, denies any chest pain, complaints on left leg discomfort with motion Objective Last 24 Hour Vital Signs Date Time Temp Pulse Resp B/P (MAP) Pulse Ox O2 Delivery O2 Flow Rate FiO2 05/22/19 12:39 149/82 (104) 05/22/19 12:00 61 05/22/19 12:00 97.7 56 20 175/90 (118) 96 05/22/19 09:00 Room Air 05/22/19 08:20 64 176/103 05/22/19 08:19 64 176/103 05/22/19 08:19 176/103 05/22/19 08:00 68 05/22/19 08:00 97.4 64 18 176/103 (127) 95 05/22/19 04:00 98.5 66 20 156/89 (111) 95 05/22/19 04:00 56 05/22/19 00:00 56 05/22/19 00:00 98.1 65 20 175/95 (121) 94 05/21/19 21:00 Room Air 05/21/19 20:59 65 165/92 05/21/19 20:59 65 165/92 05/21/19 20:00 98.1 65 18 165/92 (116) 98 05/21/19 20:00 73 05/21/19 16:00 57 05/21/19 16:00 98.0 61 18 143/87 (105) 97 General Appearance: no apparent distress EENT: PERRL/EOMI Neck: non-tender, no JVD Rhythm: NSR Cardiovascular: normal rate Respiratory/Chest: crackles/rales - at bases Abdomen: non tender Pulses: decreased: PT (R), DP (L) Neurologic: sprayer insecticide II-XII grossly normal Intake and Output 05/21/19 05/22/19 18:59 06:59 Intake Total 360 ml Output Total 650 ml 500 ml Balance -290 ml -500 ml Intake Oral 360 ml Output Urine Total 650 ml 500 ml Laboratory Tests Test 05/22/19 08:46 Troponin I 1.145 ng/mL (0.000-0.056) Yana Patel MD May 22, 2019 13:52
--- NOTE | 2019-05-22 14:30 | Diagnostic Imaging Report ---
Indication: Chest pain Comparison: None A single view chest radiograph was obtained. Findings: No definite infiltrate or pulmonary vascular congestion identified. Lung volumes are low. There is mild basal atelectasis. The heart is enlarged. The aorta is mildly enlarged consistent with atherosclerotic vascular disease. Impression: No acute disease
--- NOTE | 2019-05-22 16:28 | NUR ---
HAND-OFF: Report given to YUNIOR Craig.
--- NOTE | 2019-05-22 16:30 | NUR ---
NURSE NOTES: Report received from YUNIOR Centeno. Pt. AOx4. In RA. Denies any pain or SOB. L AC 20g AC flushed, intact, SL. Bed on lowest position, side rails upx2, brakes engaged. Call light within easy reach. Reminder given to Pt. to use call light before getting out of bed.
--- NOTE | 2019-05-22 17:20 | NUR ---
NURSE NOTES: Pt. wasn't in bed. Found in the restroom. Reminder given to use call light. Fall precaution in place. Call light within easy reach.
--- NOTE | 2019-05-22 19:10 | NUR ---
NURSE NOTES: Found Pt. walking to the restroom. Assistance provided. Pt. refused to use call light. "I'll call you. It's just that I feel like I'm getting better, when I came here I can barely walk. Now I can....." Cane at bedside. Pt. both times walking to the restroom without cane. "Don't put alarm on my bed! I'll use call light if I need it!!........". Pt. safely in bed.
--- NOTE | 2019-05-22 19:23 | NUR ---
NURSE NOTES: Report received from YUNIOR Roy. Pt is in stable condition lying comfortably in bed. Bed in the lowest position, bed brakes engaged, side rails up x3 and call light within reach. Will continue to monitor.
--- NOTE | 2019-05-22 19:25 | NUR ---
HAND-OFF: Report given to YUNIOR Turk. Patient in stable condition.
[2019-05-22] MEDS: Atorvastatin 80mg tab ORAL SCH (20:51)
[2019-05-23] VITALS: BP 173/89
[2019-05-23 04:00] VITALS: BP 121/65
--- NOTE | 2019-05-23 07:29 | NUR ---
HAND-OFF: Report given to YUNIOR Roy.
[2019-05-23 08:00] VITALS: BP 139/82
--- NOTE | 2019-05-23 08:05 | NUR ---
CASE MANAGEMENT:REVIEW 05/22/19 SI: MALIGNANT HTN. NSTEMI LT HIP PAIN 99.5 77 20 206/112 95% ON RA TROPONIN(+) 1.145 IS: ASA PO QD LOPRESSOR PO Q12 LIPITOR PO QHS NORVASC PO Q12 VASOTEC PO QD ULTRAM PO Q4HRS PRN CLONIDINE PO Q4HRS PRN ; TELEMETRY STATUS 05/23/19 SI: MALIGNANT HTN. NSTEMI LT HIP PAIN 97.7 60 20 121/65 96% ON RA IS: ASA PO QD LOPRESSOR PO Q12 LIPITOR PO QHS NORVASC PO Q12 VASOTEC PO QD ULTRAM PO Q4HRS PRN CLONIDINE PO Q4HRS PRN ; TELEMETRY STATUS
[2019-05-23 08:38] LABS: BASOPHILS % (AUTO) 2.3 % (0.0-2.0); EOSINOPHILS % (AUTO) 6.4 % (0.0-3.0); HEMATOCRIT 47.9 % (42.0-52.0); HEMOGLOBIN 15.7 G/DL (14.2-18.0); LYMPHOCYTES % (AUTO) 28.1 % (20.0-45.0); MEAN CORPUSCULAR VOLUME 90 FL (80-99); MONOCYTES % (AUTO) 12.4 % (1.0-10.0); NEUTROPHILS % (AUTO) 50.9 % (45.0-75.0); PLATELET COUNT 302 K/UL (150-450); RED BLOOD COUNT 5.34 M/UL (4.70-6.10); RED CELL DISTRIBUTION WIDTH 12.8 % (11.6-14.8); WHITE BLOOD COUNT 6.9 K/UL (4.8-10.8)
[2019-05-23 08:46] LABS: ANION GAP 3 mmol/L (5-15); BLOOD UREA NITROGEN 25 mg/dL (7-18); CALCIUM 9.4 MG/DL (8.5-10.1); CARBON DIOXIDE 31 MMOL/L (21-32); CHLORIDE 100 MMOL/L (98-107); CREATININE 1.4 MG/DL (0.55-1.30); POTASSIUM 4.4 MMOL/L (3.5-5.1); SODIUM 134 MMOL/L (136-145)
--- NOTE | 2019-05-23 09:01 | NUR ---
NURSE NOTES: Reported Troponin level to Dr. Cronin as well as Dr. Nguyen. No new orders at this time.
[2019-05-23] MEDS: Aspirin EC 81mg tab ORAL SCH (09:13)
[2019-05-23] MEDS: Metoprolol 25mg tab ORAL SCH (09:14)
[2019-05-23 12:00] VITALS: BP 140/81
--- NOTE | 2019-05-23 12:34 | Diagnostic Imaging Report ---
Indications: Back pain Technique: Spiral acquisitions obtained through the lumbar spine. Multiplanar reconstructions were generated. No IV contrast utilized. Total dose length product 415.39 mGycm. CTDIvol(s) 13.09 mGy. Dose reduction achieved using automated exposure control Comparison: none Findings: 5 mm anterior offset of L4 on L5 is likely related to facet arthrosis. Bony alignment is normal otherwise. No acute fractures. No dislocations. The vertebral body heights are preserved. The disc spaces are preserved. At L3-4, circumferential bulge and facet and ligamentum flavum hypertrophy result in borderline narrowing of the spinal canal. The neural foramina are preserved. There is mild bilateral facet arthrosis. At L4-5, the the above described alignment abnormality, circumferential annular bulge, short pedicles, facet and ligamenta flava hypertrophy all result in moderate narrowing of the spinal canal. There may be slight compromise of the neural foramina due to the alignment abnormality. There is fairly extensive bilateral facet arthrosis. At L5-S1, there is mild circumferential annular bulge. This does not appear to significantly compromise the spinal canal. Facet arthrosis on the left results in mild compromise of the left neural foramen. The included extraspinal soft tissues are remarkable for apparent distention of the bladder. Impression: No acute bony trauma Degenerative changes, as detailed on a level by level basis above. Distended bladder incidentally noted The CT scanner at [facility] is accredited by the [employer] and the scans are performed using protocols designed to limit radiation exposure to as low as reasonably achievable to attain images of sufficient resolution adequate for diagnostic evaluation.
--- NOTE | 2019-05-23 12:53 | Diagnostic Imaging Report ---
Indication: Left hip pain Technique: Noncontrast spiral acquisitions obtained through the left hip and pelvis Multiplanar reconstructions were generated. Total dose length product 309.41 mGycm. CTDIvol(s) 12.29 mGy. Radiation dose was minimized using automated exposure control Comparison: none Findings: No evidence of acute fracture. There are mild degenerative changes of the hip joints bilaterally, with a few subchondral cysts noted. There is slight proliferative change of the bilateral acetabular lips. No evidence of significant soft tissue contusion. There is suggestion of slight inflammatory changes are seen in the upper pelvis, to the left of midline just above the dome of the bladder and adjacent to the sigmoid colon. There is sigmoid diverticulosis. Impression: No acute bony trauma Mild bilateral hip degenerative changes Sigmoid diverticulosis Questionable inflammatory changes in the left upper pelvis, adjacent to the dome of the bladder and to the sigmoid colon. If real, this could indicate cystitis or early acute diverticulitis. Correlate with clinical findings, consider dedicated contrast CT if clinically indicated for further evaluation. The CT scanner at [facility] is accredited by the [employer] and the scans are performed using protocols designed to limit radiation exposure to as low as reasonably achievable to attain images of sufficient resolution adequate for diagnostic evaluation.
--- NOTE | 2019-05-23 12:58 | General Progress Note ---
Assessment/Plan Assessment/Plan: left hip pain malignant hypertension NSTEMI no hip pain today troponin still high disc w cardiology and will need cath will arrange transfer Subjective Constitutional: Reports: no symptoms Allergies: Coded Allergies: No Known Allergies (Unverified , 03/22/14) Objective Last 24 Hour Vital Signs Date Time Temp Pulse Resp B/P (MAP) Pulse Ox O2 Delivery O2 Flow Rate FiO2 05/23/19 09:14 73 139/82 05/23/19 09:14 139/82 05/23/19 09:12 73 139/82 05/23/19 09:00 Room Air 05/23/19 08:00 67 05/23/19 08:00 98.2 73 18 139/82 (101) 96 05/23/19 04:00 97.7 60 20 121/65 (83) 96 05/23/19 04:00 57 05/23/19 00:57 173/89 05/23/19 00:00 67 05/23/19 00:00 98.1 64 20 173/89 (117) 98 05/22/19 21:00 Room Air 05/22/19 20:56 206/112 05/22/19 20:54 77 206/112 05/22/19 20:53 77 206/112 05/22/19 20:00 71 05/22/19 20:00 99.5 77 20 206/112 (143) 95 05/22/19 16:00 98.0 56 20 152/ 0 05/22/19 16:00 63 05/22/19 16:00 98.0 61 20 152/93 (112) 95 Intake and Output 05/22/19 05/23/19 19:00 07:00 Intake Total 360 ml Output Total 450 ml Balance -90 ml Intake Oral 360 ml Output Urine Total 450 ml # Voids 1 5 Laboratory Tests 05/23/19 07:57: White Blood Count 6.9, Red Blood Count 5.34, Hemoglobin 15.7, Hematocrit 47.9, Mean Corpuscular Volume 90, Mean Corpuscular Hemoglobin 29.5, Mean Corpuscular Hemoglobin Concent 32.9, Red Cell Distribution Width 12.8, Platelet Count 302, Mean Platelet Volume 6.1L, Neutrophils (%) (Auto) 50.9, Lymphocytes (%) (Auto) 28.1, Monocytes (%) (Auto) 12.4H, Eosinophils (%) (Auto) 6.4H, Basophils (%) ( Auto) 2.3H, Sodium Level 134L, Potassium Level 4.4, Chloride Level 100, Carbon Dioxide Level 31, Anion Gap 3L, Blood Urea Nitrogen 25H, Creatinine 1.4H, Estimat Glomerular Filtration Rate , Glucose Level 105, Calcium Level 9.4, Troponin I 1.202H Height (Feet): 5 Height (Inches): 4.00 Weight (Pounds): 160 General Appearance: no apparent distress Cardiovascular: normal rate Respiratory/Chest: lungs clear Bipin Nguyen MD May 23, 2019 12:58
--- NOTE | 2019-05-23 13:16 | NUR ---
NURSE NOTES: Received a call from Dr. Nguyen. Pt. to be transferred to another hospital, TODAY. Caicedo to follow up.
--- NOTE | 2019-05-23 13:19 | NUR ---
NURSE NOTES: Left a message to Marifer patient case coordinator. Waiting for a call back.
--- NOTE | 2019-05-23 13:35 | NUR ---
NURSE NOTES: Family wants to talk to MD. Message left to Dr. Magdaleno and Dr. Santizo. Waiting for a call back.
--- NOTE | 2019-05-23 13:59 | NUR ---
TRANSFER UPDATE TRANSFER ORDER NOTED CLINICALS WILL BE FAXED TO [facility] AND THEY WILL ARRANGE TRANSFER
--- NOTE | 2019-05-23 14:43 | NUR ---
Social Service Note Transfer arranged to [facility] room 443, nurse to call report to [phone], accepting Doctor, Dr. Robert Vaughn. Ambulance arranged with [facility] [phone], roller picker time [phone].
--- NOTE | 2019-05-23 16:00 | NUR ---
NURSE NOTES: Pt's family notified of DC planning.
[2019-05-23] MEDS ORDERED: NORVASC2.5 MG ORAL (16:19)
[2019-05-23] MEDS ORDERED: ASPIR 8181 MG ORAL (16:19)
[2019-05-23] MEDS ORDERED: LIPITOR80 MG ORAL (16:20)
[2019-05-23] MEDS ORDERED: CLONIDINE HCL0.1 MG PO (16:21)
[2019-05-23] MEDS ORDERED: VASOTEC20 MG ORAL (16:22)
[2019-05-23] MEDS ORDERED: METOPROLOL TART25 MG ORAL (16:23)
--- NOTE | 2019-05-23 18:30 | History and Physical Report ---
DATE OF ADMISSION: 05/20/2019 REASON FOR ADMISSION: Left leg pain with malignant hypertension and elevated troponin. HISTORY OF PRESENT ILLNESS: The patient presents to the hospital with pain in the left hip and thigh. He did not have any injury. He was evaluated and found to have an elevated blood pressure over 200. Troponin was elevated and admission was arranged. The patient is able to ambulate. He has a history of arthritis. PAST MEDICAL HISTORY: Hypertension and arthritis. He denies heart disease or lung disease. ALLERGIES: None. SOCIAL HISTORY: He does not drink or smoke. REVIEW OF SYSTEMS: Otherwise unremarkable. PHYSICAL EXAMINATION: GENERAL: The patient is alert and responds appropriately. VITAL SIGNS: Stable. Blood pressure was as high as 205 systolic. HEAD AND NECK: Negative. CHEST: Clear. CARDIAC: Rhythm is regular without murmur or gallop. ABDOMEN: Soft and nontender. EXTREMITIES: No clubbing, cyanosis, or edema in the left hip. IMAGING AND LABORATORY STUDIES: Reviewed. X-ray of the hip shows negative findings. EKG shows some abnormal Q-waves and biphasic T-waves. IMPRESSION: 1. Malignant hypertension. 2. Possible STEMI. 3. Left hip pain. 4. Hyperlipidemia. PLAN: The patient will be seen by Cardiology. We will give aspirin and follow up cardiac enzymes. He may require angiogram. Bipin Nguyen M.D. DR: FIDE JOB#: [id number] CC:
--- NOTE | 2019-05-23 19:45 | NUR ---
Discharge Note: Pt. VS stable. Family and Pt. shetty of transfer to [facility]. Belongings checked with Pt and family, signed and filed. policy writer removed. Name band removed. Report given to ambulance personnel Shola. Package prepared by CN, given to ambulance personnel. Pt. DC package given to Pt. Left floor safely with ambulance personnel Via gurney.
--- NOTE | 2019-05-24 07:51 | Discharge Summary ---
Discharge Summary Discharge Summary _ DATE OF ADMISSION: 05/20/2019 DATE OF DISCHARGE: 11/23/2018 DISCHARGED BY: Dr. Nguyen REASON FOR ADMISSION: 73 years old male with past medical history of hypertension, arthritis, presented to the emergency department with left hip and thigh pain. He denied any injury or fall. He denied fever and chills. He denied tingling or numbness. He denied loss of bowel or bladder control. Upon evaluation blood pressure was severely elevated 210/106. Laboratory work-up revealed no leukocytosis , stable hemoglobin and hematocrit. Stable electrolytes. BUN 20 , creatinine 1.5. Troponin slightly elevated 0.06. EKG revealed abnormal Q waves and biphasic T waves. X-ray of the left hip revealed no acute injury. X-ray of the left femur was negative. Patient subsequently admitted to telemetry floor for further management CONSULTANTS: front end engineer Dr. Cronin [facility] COURSE: Patient admitted to telemetry floor. Bilingual Office Assistant followed. Patient started on antiplatelet therapy with aspirin. Serial troponin showed pattern of elevation 1.096, 1.375 . Echocardiogram revealed preserved ejection fraction 55 to 60% with mild left ventricular hypertrophy. No evidence of wall motion abnormality. Right ventricular systolic pressure of 20. Blood pressure was managed with beta-brittaney, calcium channel brittaney and DEAN inhibitor. Clonidine was on board as needed. Blood pressure stabilized. Prior to transfer 140/81 with the average being in 130thover 80th. Lipid panel revealed elevated total cholesterol 201 , elevated LDL 136 , triglycerides 112. Patient started on statin . Patient was educated on compliance with medication regimen and cardiac /low-salt , low-fat, low-cholesterol diet. Supplemental oxygen provided as needed to keep pulse oximetry above 92%. Pulmonary toilet was on standby as needed. Pulse oximetry was stable on room air. Patient required cardiac catheterization. Pain management was addressed. CT of the lumbar spine revealed no acute bony trauma. Degenerative changes noted. CT of the left hip revealed no acute bony trauma. Mild bilateral hip degenerative changes Supportive care provided. Fall precaution maintained. Placement was arranged to [facility] for cardiac catheterization. Patient was stable for transfer patient was stable for transfer FINAL DIAGNOSES: NSTEMI Malignant hypertension/hypertensive urgency Left hip pain likely due to degenerative changes Hyperlipidemia DISCHARGE MEDICATIONS: See Medication Reconciliation list. DISCHARGE INSTRUCTIONS: Patient was transferred to [facility] for cardiac catheterization I have been assigned to dictate discharge summary for this account. I was not involved in the patient's management. Shayy Cole NP May 24, 2019 07:51
== END 2019-05-23 17:20 | disposition short-term general hospital (02) | DRG 282 ==
LOC: EMR 21:46 → 2E 05-20 00:34 → EDBEDREQ 05-20 00:55 → 2E 05-20 01:25
DX: I21.4 Non-ST elevation (NSTEMI) myocardial infarction (principal); M25.552 Pain in left hip; Z91.14 Patient's other noncompliance with medication regimen; E78.5 Hyperlipidemia, unspecified; I16.0 Hypertensive urgency
CPT/HCPCS: 36415; 71045; 72131; 73502; 80048; 80053; 80061; 82550; 82553; 84153; 84443; 84484; 85025; 93005; 93306; 96374; 99285

== ENCOUNTER 2020-02-19 11:57 | Emergency (ER) | payer MEDICARE, MEDICAID ==
[~2020-02-19] VITALS: Ht 162.6 cm; Wt 70.3 kg
[~2020-02-19 11:57] MED LIST changes: +ASPIR 8181 MG ORAL; +CLONIDINE HCL0.1 MG PO; +LIPITOR80 MG ORAL; +METOPROLOL TART25 MG ORAL; +NORVASC2.5 MG ORAL; +VASOTEC20 MG ORAL
[2020-02-19 12:19] VITALS: BP 147/89
--- NOTE | 2020-02-19 12:25 | NUR ---
ED Nurse Note: pt walked in to ed with cane for c/o left hip pain since last night. denies trauma.
[2020-02-19] MEDS ORDERED: Dicyclomine HCl 10mg/5ml oral soln ORAL ONE (12:30)
--- NOTE | 2020-02-19 12:45 | NUR ---
ED Nurse Note: patient provided urine sample, sent to lab. patient taken to xray
[2020-02-19 12:52] LABS: APPEARANCE,URINE CLEAR; BILIRUBIN, URINE NEGATIVE (NEGATIVE); COLOR,URINE PALE YELLOW; GLUCOSE, URINE (UA) NEGATIVE (NEGATIVE); KETONES,URINE NEGATIVE (NEGATIVE); LEUKOCYTE ESTERASE ,URINE NEGATIVE (NEGATIVE); NITRITE,URINE NEGATIVE (NEGATIVE); PH,URINE 7 (4.5-8.0); PROTEIN,URINE NEGATIVE (NEGATIVE); UROBILINOGEN,URINE 1 MG/DL (0.0-1.0)
--- NOTE | 2020-02-19 13:01 | NUR ---
ED Nurse Note: patient came back from xray in stable condition
[2020-02-19] MEDS ORDERED: NORCO 5-325 TA1 EAC1 ORAL (13:04)
[2020-02-19] MEDS ORDERED: DICYCLOMINE HCL20 M1 PO (13:04)
--- NOTE | 2020-02-19 13:04 | Diagnostic Imaging Report ---
EXAM: XR Left Hip With Pelvis When Performed, 2 or 3 Views CLINICAL HISTORY: PAIN TECHNIQUE: Two or three views of the left hip with pelvis when performed. COMPARISON: Pelvis and left hip radiographs on 05/19/2019. CT pelvis on 05/23/2019. FINDINGS: Bones/joints: No displaced fracture or dislocation identified. Osteopenia. Degenerative changes of the hips. Degenerative changes of the visualized lower lumbar spine. Soft tissues: Vascular calcifications. IMPRESSION: No displaced fracture or dislocation identified.
[2020-02-19 13:12] VITALS: BP 147/89
--- NOTE | 2020-02-19 13:12 | NUR ---
ER DISCHARGE NOTE: Patient is cleared to be discharged per ERMD DR MUELLER , pt is aox4, on room air, with stable vital signs. pt was given dc and prescription instructions, pt was able to verbalize understanding, pt id band removed without complications. pt is able to ambulate with steady gait. pt took all belongings.
--- NOTE | 2020-02-19 13:40 | Emergency Room Report ---
History of Present Illness General Chief Complaint: Pain Source: Medical Record Present Illness HPI Patient is a 74-year-old male presents after increased left-sided hip pain. Patient reports of increased pain with ambulation. Denies any recent trauma. Previous history of hypertension. Denies any numbness or weakness to his extremity. Patient had normally been ambulatory with a walker. Denies any recent fever. Denies any vomiting. Denies any urinary changes.Onset of symptoms approximately 2 days. Allergies: Coded Allergies: No Known Allergies (Unverified , 03/22/14) COVID-19 Screening Contact w/high risk pt: No Recent Travel to affected area: No Experienced COVID-19 symptoms?: No Patient History Past Medical History: see triage record Reviewed Nursing Documentation: PMH: Agreed; PSxH: Agreed Nursing Documentation-PMH Past Medical History: No History, Except For Hx Hypertension: Yes Review of Systems All Other Systems: negative except mentioned in HPI Physical Exam Vital Signs Date Time Temp Pulse Resp B/P (MAP) Pulse Ox O2 Delivery O2 Flow Rate FiO2 02/19/20 12:19 97.9 92 18 147/89 (108) 96 Room Air General Appearance: well appearing, no apparent distress, alert, GCS 15 Head: normocephalic, atraumatic ENT: hearing grossly normal, normal voice Neck: full range of motion, supple Respiratory: lungs clear, normal breath sounds, no respiratory distress, speaking full sentences Cardiovascular #1: normal inspection, no edema Gastrointestinal: normal inspection, non tender, soft Musculoskeletal: normal inspection, gait/station normal Neurologic: alert, motor strength/tone normal, case planner III-XII nml as tested, oriented x3, normal gait Psychiatric: mood/affect normal Skin: no rash Medical Decision Making Diagnostic Impression: Primary Impression: Hip pain, left ER Course Patient presented for left hip pain. Differential diagnosis include was not limited to fracture, arthritis, colitis among others. X-ray imaging was ordered due to patient's complaint of pain. X-ray imaging read by radiology showed no evidence of acute fracture. Patient be discharged home. Patient is to follow-up with primary care physician for recheck. He is advised to return if worse. He was given prescription for medication for symptomatic treatment. The patient is advised to follow up with primary care doctor in 1-2 days. Patient is advised to return if any worsening condition or if any changes in status that are concerning. This report is dictated with [employer] plate maker software which may occasionally lead to discrepancies related to use of this software. Last Vital Signs Date Time Temp Pulse Resp B/P (MAP) Pulse Ox O2 Delivery O2 Flow Rate FiO2 02/19/20 13:12 97.9 92 18 147/89 96 Room Air Status: improved Disposition: HOME, SELF-CARE Scripts Hydrocodone Bit/Acetaminophen 5-325* (NORCO 5-325 TABLET*) 1 Each Tablet 1 TAB ORAL Q6H PRN for FOR PAIN, #10 TAB 0 Refills Prov: Henrry Diaz MD 02/19/20 Dicyclomine Hcl (DICYCLOMINE HCL) 20 Mg Tablet 20 MG PO NEEDED, #20 TAB Prov: Henrry Diaz MD 02/19/20 Referrals: LAURA DESAI (PCP) Patient Instructions: Hip Pain Henrry Diaz MD Feb 19, 2020 13:40
--- NOTE | 2020-02-19 13:40 | NUR ---
Note alvastephen in EDM - 02/19/20 at 1413 by [email or web address] ER DISCHARGE NOTE: Patient is cleared to be discharged per ERMD, pt is aox4, on room air, with stable vital signs. pt was given dc and prescription instructions, pt was able to verbalize understanding, pt id band was removed. pt is able to ambulate with steady gait. pt took all belongings.
== END 2020-02-19 13:50 | disposition home or self-care (01) ==
LOC: EMR 12:53
DX: M25.552 Pain in left hip (principal); I10 Essential (primary) hypertension
CPT/HCPCS: 73502; 81003; 99283